=== PATIENT | female | born 1960 | race Two or more races ===

== ENCOUNTER 2018-09-01 07:34 | Outpatient (CLI) | payer OTHER | END 2018-09-01 07:45 | disposition home or self-care (01) | LOC: TOM 07:34 | DX: C64.1 Malignant neoplasm of right kidney, except renal pelvis (principal) ==

== ENCOUNTER 2019-06-23 08:03 | Outpatient (CLI) | payer OTHER | END 2019-06-23 08:18 | disposition home or self-care (01) | LOC: MAMO-SONO 08:03 | DX: Z12.31 Encounter for screening mammogram for malignant neoplasm of breast (principal); N60.11 Diffuse cystic mastopathy of right breast ==

== ENCOUNTER 2021-11-09 11:08 | Outpatient (CLI) | payer OTHER | END 2021-11-09 11:18 | disposition home or self-care (01) | LOC: MAMO-SONO 11:08 | PROVIDERS: ATTEND Obstetrics & Gynecology | DX: N60.11 Diffuse cystic mastopathy of right breast (principal) ==

== ENCOUNTER 2022-01-18 08:23 | Outpatient (CLI) | payer OTHER | END 2022-01-18 08:42 | disposition home or self-care (01) | LOC: MRI 08:23 | PROVIDERS: ATTEND Urology | DX: R31.29 Other microscopic hematuria (principal); N28.89 Other specified disorders of kidney and ureter | CPT/HCPCS: 74183 ==

== ENCOUNTER 2022-07-16 15:39 | Outpatient (CLI) | payer OTHER | END 2022-07-16 15:49 | disposition home or self-care (01) | LOC: RAD 15:39 | PROVIDERS: ATTEND Ophthalmology | DX: R07.89 Other chest pain (principal) ==

== ENCOUNTER 2022-09-28 07:58 | Outpatient (CLI) | payer OTHER | END 2022-09-28 08:05 | disposition home or self-care (01) | LOC: SONOGRAMA 07:58 | PROVIDERS: ATTEND Internal Medicine Gastroenterology | DX: R16.0 Hepatomegaly, not elsewhere classified (principal); E04.8 Other specified nontoxic goiter ==

== ENCOUNTER 2023-03-12 10:37 | Outpatient (CLI) | payer OTHER | END 2023-03-12 10:48 | disposition home or self-care (01) | LOC: MAMO-SONO 10:37 | PROVIDERS: ATTEND Obstetrics & Gynecology | DX: N60.11 Diffuse cystic mastopathy of right breast (principal); Z12.31 Encounter for screening mammogram for malignant neoplasm of breast ==

== ENCOUNTER 2024-07-17 12:41 | Outpatient (CLI) | payer OTHER | END 2024-07-17 12:50 | disposition home or self-care (01) | LOC: MRI 12:41 | PROVIDERS: ATTEND Family Medicine | DX: M47.26 Other spondylosis with radiculopathy, lumbar region (principal) | CPT/HCPCS: 72148 ==